=== PATIENT | female | born 1940 | race Caucasian/White ===

== ENCOUNTER → 2023-08-15 15:43 | Outpatient (REF) | payer MEDICARE, OTHER, SELFPAY | LOC: HWRAD 15:43 | PROVIDERS: ATTENDING PHYSICIAN Internal Medicine Critical Care Medicine; FAMILY PHYSICIAN Internal Medicine Geriatric Medicine | DX: J18.9 Pneumonia, unspecified organism (principal); R04.2 Hemoptysis | CPT/HCPCS: 71250 ==

== ENCOUNTER → 2024-01-20 10:32 | Outpatient (REF) | payer MEDICARE, OTHER, SELFPAY ==
[2024-01-20 11:52] LABS: Urine Albumin Negative (Neg - Trace); Urine Bilirubin Negative (Negative); Urine Character Clear (Clear); Urine Color Yellow; Urine Glucose Negative (Negative); Urine Ketone Negative (Negative); Urine Leukocyte Trace (Negative); Urine Nitrite Negative (Negative); Urine Occult Blood Negative (Negative); Urine Specific Gravity 1.015 (<1.030); Urine Urobilinogen Negative (Neg - 1+)
[2024-01-20 12:05] LABS: Urine Red Blood Cell 0-2 /HPF (0-2)
[2024-01-20 12:06] LABS: Urine Bacteria Moderate (Negative); Urine White Cell 30-40 /HPF (0-5)
== END ==
LOC: HWLAB 10:32
PROVIDERS: ATTENDING PHYSICIAN Nurse Practitioner Family
DX: R82.90 Unspecified abnormal findings in urine (principal)
CPT/HCPCS: 81003; 81015; 87077; 87086

== ENCOUNTER → 2024-07-09 08:21 | Outpatient (REF) | payer MEDICARE, OTHER, SELFPAY | LOC: RAD 08:21 | PROVIDERS: ATTENDING PHYSICIAN Nurse Practitioner Family; FAMILY PHYSICIAN Internal Medicine Geriatric Medicine | DX: T14.8XXD Other injury of unspecified body region, subsequent encounter (principal); R09.89 Other specified symptoms and signs involving the circulatory and respiratory systems | CPT/HCPCS: 93922; 93925 ==

== ENCOUNTER → 2024-09-17 12:53 | Outpatient (REF) | payer MEDICARE, OTHER, SELFPAY | LOC: HWRAD 12:53 | PROVIDERS: ATTENDING PHYSICIAN Nurse Practitioner Family; FAMILY PHYSICIAN Internal Medicine Geriatric Medicine | DX: J32.9 Chronic sinusitis, unspecified (principal) | CPT/HCPCS: 70486 ==

== ENCOUNTER → 2024-10-08 07:23 | Outpatient (REF) | payer MEDICARE, OTHER, SELFPAY ==
[2024-10-08 09:44] LABS: NT-proBNP 1090 pg/ml
[2024-10-08 09:46] LABS: ALT (SGPT) 17 U/L (0-35); AST (SGOT) 27 U/L (14-36); Alkaline Phosphatase 73 U/L (38-126); Blood Urea Nitrogen 27 mg/dl (7-17); Calcium 9.8 mg/dl (8.4-10.2); Carbon Dioxide 29 mmol/L (22-30); Chloride 106 mmol/L (98-107); Glucose 96 mg/dl (70-99); HDL Cholesterol 91 mg/dl; LDL Cholesterol, Calculated 46 mg/dl; Potassium 4.4 mmol/L (3.5-5.1); Sodium 142 mmol/L (135-145); Total Bilirubin 0.9 mg/dl (0.2-1.3); Total Cholesterol 156 mg/dl (50-199); Total Protein 6.3 g/dl (6.3-8.2); Triglyceride 97 mg/dl (10-149); Very Low Density Lipoprotein 19 mg/dl (0-30); eGFR > 60.00
== END ==
LOC: HWLAB 07:23
PROVIDERS: ATTENDING PHYSICIAN Internal Medicine Cardiovascular Disease; FAMILY PHYSICIAN Internal Medicine Geriatric Medicine
DX: I48.21 Permanent atrial fibrillation (principal); E87.1 Hypo-osmolality and hyponatremia; R06.09 Other forms of dyspnea; E78.2 Mixed hyperlipidemia
CPT/HCPCS: 36415; 80053; 80061; 83880

== ENCOUNTER → 2024-10-26 12:34 | Outpatient (REF) | payer MEDICARE, OTHER, SELFPAY ==
[2024-10-26 15:48] LABS: % Basophils 0.7 % (0-2); % Eosinophils 1.2 % (0-6); % Immature Granulocytes 0.3 % (0-0.5); % Lymphocytes 23.5 % (20.5-51.1); % Monocytes 8.9 % (1.7-9.3); % Neutrophils 65.4 % (42.2-75.2); Absolute Basophils 0.1 10^3/uL (0-0.2); Absolute Eosinophils 0.1 10^3/uL (0-0.7); Absolute Monocytes 0.8 10^3/uL (0.1-0.6); Absolute Neutrophils 5.7 10^3/uL (1.4-6.5); Hematocrit 36.3 % (37.0-47.0); Hemoglobin 12.1 g/dL (12.0-16.0); Mean Corp Hgb Conc. 33.3 g/dL (33.0-37.0); Mean Corpuscular Hgb 31.9 pg (27.0-31.0); Mean Corpuscular Volume 95.8 fL (81.0-99.0); Mean Platelet Volume 11.1 fL (7.4-10.4); Nucleated Red Blood Cells % 0 %; Platelet Count 244 10^3/uL (130-400); Red Blood Cell Count 3.79 10^6/uL (4.20-5.40); Red Cell Dist. Width 13.5 % (11.5-14.5); White Blood Cell Count 8.7 10^3/uL (4.8-10.8)
[2024-10-26 16:17] LABS: Erythrocyte Sed Rate 8 mm/hour (0-20)
== END ==
LOC: HWLAB 12:34
PROVIDERS: ATTENDING PHYSICIAN Internal Medicine Geriatric Medicine
DX: E78.2 Mixed hyperlipidemia (principal); I48.91 Unspecified atrial fibrillation; I10 Essential (primary) hypertension; I27.20 Pulmonary hypertension, unspecified; M17.11 Unilateral primary osteoarthritis, right knee; I07.1 Rheumatic tricuspid insufficiency; M54.16 Radiculopathy, lumbar region; E55.9 Vitamin D deficiency, unspecified; J01.00 Acute maxillary sinusitis, unspecified; Z13.31 Encounter for screening for depression; S81.801D Unspecified open wound, right lower leg, subsequent encounter
CPT/HCPCS: 36415; 73590; 85025; 85652; 86140

== ENCOUNTER 2025-01-16 14:55 | Emergency (ER) | payer MEDICARE, OTHER, SELFPAY ==
[2025-01-16 15:02] VITALS: BP 149/70
[2025-01-16 15:45] VITALS: BMI 25.8
--- NOTE | 2025-01-16 16:12 | ED.GENMED ---
History of Present Illness
General
Chief Complaint: Skin Surface Trauma
Time Seen by Provider: 01/16/25 16:02
History of Present Illness
History of Present Illness:
84-year-old female presents the emergency department for evaluation of acute onset of discomfort to the left medial lower leg associated with bruising and swelling. She applied ice and compress the area with improvement. Denies any trauma to the
area. No pain with ambulation. No leg edema. She is anticoagulated due to A-fib on Eliquis
Past History
Past History
ED Past Medical History: None
ED Past Surgical History: None
Social History
Tobacco: Non-smoker
Alcohol: None
Drug: None
Personal:
Review of Systems
Review of Systems
Allergies reviewed?: Yes
All Other Systems: ROS reviewed and negative except as documented in HPI and ROS
Phy Exam
Physical Exam
Physical Exam:
GEN: Well appearing, NAD, WDWN
HEENT: Oral mucosa moist, no scleral icterus
Cardiac: Regular rate
Lung: No respiratory distress, no tachypnea
MSK: No gross deformity or injuries. Soft and compressible swelling to the left medial lower leg in the saphenous vein region, no induration or erythema, no warmth, grossly nontender
Skin: Good color, no pallor or jaundice, no rashes
Neuro: AO x3, moves all extremities freely
Psych: Calm, cooperative
Course
Vital Signs
Initial and Last Documented VS:
Initial Vital Signs
Temp Pulse Resp BP Pulse Ox
97.9 F 77 16 149/70 98
01/16/25 15:02 01/16/25 15:02 01/16/25 15:02 01/16/25 15:02 01/16/25 15:02
Last Documented Vital Signs
Temp Pulse Resp BP Pulse Ox
97.9 F 77 16 149/70 98
01/16/25 15:02 01/16/25 15:02 01/16/25 15:02 01/16/25 15:02 01/16/25 16:15
MDM/Problems Addressed
MDM/Problems Addressed:
Likely a spontaneous hematoma. Given lack of rigidity to the area doubt superficial phlebitis. Recommend ice and compression
*Pulse Oximetry
SaO2: 98
Oxygen Mode of Delivery: Room air
Patient hypoxic: no
*Critical Care Note
Total Time (30-74mins, 75-104mins- exclusive of procedures): Not Applicable
ED Attending Note
-
Portions of this chart may have been created with voice recognition software.� Occasional wrong word or��sound alike� substitutions may have occurred due to the inherent limitations of voice recognition software.
Discharge Plan
Departure
Patient Disposition: Home (Routine Discharge)
Date of Disposition: 01/16/25
Time of Disposition: 16:14
Patient with high blood pressure during this ER visit?: No
Discharge Problem:
Spontaneous hematoma of lower leg
Instructions: Hematoma
Prescriptions:
No Action
diltiazem HCl 120 MG tablet
120 mg PO QPM
lisinopril 10 MG tablet
10 mg PO DAILY
calcium polycarbophil [Fiber-Tabs] 625 MG tablet
625 mg PO DAILY
L.acidoph,paracasei,B.animalis 1 EACH capsule
1 ea PO BID
pufnufuz-mnw-AT-lycopen-lutein [Centrum Silver] 1 EACH tablet
1 ea PO DAILY
calcium citrate-vitamin D3 [Citracal + D Maximum] 1 EACH tablet
1 ea PO DAILY
acetaminophen [Tylenol Extra Strength] 500 MG tablet
1,000 mg PO Q6HPRN PRN (Reason: pain)
apixaban [Eliquis] 5 MG tablet
5 mg PO BID
metronidazole 500 MG tablet
500 mg PO TID Qty: 21 0RF
levofloxacin 500 MG tablet
500 mg PO DAILY Qty: 7 0RF
levofloxacin 500 mg tablet
500 mg PO DAILY Qty: 7 0RF
Activity Restrictions/Additional Instructions:
Elevate the leg
Compress and ice often
Return to the ER if you develop severe pain or swelling of the entire leg
Interventions
Interventions:
*Risk Screen - Suicide Last Done: 01/16/25 15:02
*General Assessment Last Done: 01/16/25 15:02
*Neglect/Abuse Screening Last Done: 01/16/25 15:02
*ED- Fall Risk Assessment Last Done: 01/16/25 15:45
*ED COVID-19 Vaccine History Last Done: 01/16/25 15:45
*Nursing Disposition Last Done: 01/16/25 16:28
ED-Skin Assessment Last Done: 01/16/25 15:45
Discharge Date and Time
Discharge Date/Time: 01/16/25 16:27
Print Language: [id number]
== END 2025-01-16 16:27 | disposition home or self-care (01) ==
LOC: EMR 14:55
PROVIDERS: EMERGENCY PHYSICIAN Emergency Medicine; FAMILY PHYSICIAN Internal Medicine Geriatric Medicine
DX: M79.81 Nontraumatic hematoma of soft tissue (principal); R22.42 Localized swelling, mass and lump, left lower limb; I48.91 Unspecified atrial fibrillation; Z79.01 Long term (current) use of anticoagulants
CPT/HCPCS: 99282

== ENCOUNTER → 2025-07-06 10:32 | Outpatient (REF) | payer MEDICARE, OTHER, SELFPAY | LOC: RAD 10:32 | PROVIDERS: ATTENDING PHYSICIAN Nurse Practitioner Primary Care | DX: J22 Unspecified acute lower respiratory infection (principal) | CPT/HCPCS: 71046 ==